=== PATIENT | male | born 1975 | race Two or more races ===

== ENCOUNTER 2018-02-11 04:50 | Inpatient (IN) | payer OTHER ==
[~2018-02-11] VITALS: Ht 177.8 cm; Wt 90.3 kg
--- NOTE | 2018-02-11 05:10 | NUR ---
SE RECIBE PTE ALERTA Y ORIENTADO POR JOSE ALBERTO. PTE REFIERE PRESENTAR JAME DOLOR EN COSTADO DERECHO DESDE LA MADRUGADA.
--- NOTE | 2018-02-11 05:44 | NUR ---
PTE EVALUADO POR DR DIAZ QUIEN [place]. MR R SMALL ORIENTA SOBRE EL MISMO, LO CUAL REFIERE ENTENDER, REALIZA PRUEBAS DE LABORATORIO Y ADMINISTRA MEDICAMENTOS SHUKRI ORDEN MEDICA Y SIGUIENDO MEDIDAS ASEPTICAS. PTE PENDIENTE A REALIZAR CT-PO. SE MANTIENE BAJO OBSERVACION.
--- NOTE | 2018-02-11 07:19 | NUR ---
SE RECIBE PTE MASCULINO DE 42 YRS ALERTA CONCIENTE Y TRANQUILO EN COMPANIA DE FAMILIARE. PTE EN ESPERA DE ESTUDIO DE CT SCAN . SE LE STACEY S/V LA CUAL SE DOCUMENTA. SE OBSERVA POR CAMBIOS.
[2018-02-13] MEDS ORDERED: PROTONIX40 MG PO (11:38)
[2018-02-13] MEDS ORDERED: AMOX1TAB5 PO (11:38)
[2018-02-13] MEDS ORDERED: FLAGYL500MG PO (11:38)
== END 2018-02-13 12:39 | disposition home or self-care (01) | DRG 343 ==
LOC: ER 04:50 → O/R 14:15 → SURH 14:15
PROVIDERS: ADMIT Surgery
PROC: BW21ZZZ Computerized Tomography (CT Scan) of Abdomen and Pelvis (ICD-10-PCS; 2018-02-11)
PROC: 0DTJ0ZZ Resection of Appendix, Open Approach (ICD-10-PCS; principal; 2018-02-11 16:00)
DX: K35.890 Other acute appendicitis without perforation or gangrene (principal); I10 Essential (primary) hypertension; K59.09 Other constipation; K57.30 Diverticulosis of large intestine without perforation or abscess without bleeding

== ENCOUNTER 2019-06-14 11:30 | Outpatient (CLI) | payer OTHER ==
[~2019-06-14 11:30] MED LIST: AMOX1TAB5 PO; FLAGYL500MG PO; PROTONIX40 MG PO
== END 2019-06-14 13:20 | disposition home or self-care (01) ==
LOC: NUCLEAR 11:30
DX: I87.2 Venous insufficiency (chronic) (peripheral) (principal); R60.0 Localized edema; D69.2 Other nonthrombocytopenic purpura; I73.89 Other specified peripheral vascular diseases

== ENCOUNTER 2019-06-16 10:46 | Outpatient (CLI) | payer OTHER | END 2019-06-16 11:12 | disposition home or self-care (01) | LOC: NUCLEAR 10:46 | DX: I73.89 Other specified peripheral vascular diseases (principal); R60.0 Localized edema; D69.2 Other nonthrombocytopenic purpura; I87.2 Venous insufficiency (chronic) (peripheral) ==

== ENCOUNTER 2020-02-27 14:57 | Outpatient (CLI) | payer OTHER | END 2020-02-27 15:08 | disposition home or self-care (01) | LOC: TOM 14:57 | PROVIDERS: ATTEND Otolaryngology Plastic Surgery within the Head & Neck | DX: H70.892 Other mastoiditis and related conditions, left ear (principal); H70.899 Other mastoiditis and related conditions, unspecified ear; H93.8X9 Other specified disorders of ear, unspecified ear ==

== ENCOUNTER → 2020-03-06 | Outpatient (CLI) | payer OTHER | END | disposition home or self-care (01) | LOC: RAD 14:44 | PROVIDERS: ATTEND General Practice | DX: J01.80 Other acute sinusitis (principal); H92.03 Otalgia, bilateral ==

== ENCOUNTER 2022-03-30 07:26 | Outpatient (CLI) | payer OTHER | END 2022-03-30 07:40 | disposition home or self-care (01) | LOC: RAD 07:26 | DX: M54.2 Cervicalgia (principal) ==

== ENCOUNTER 2022-11-05 13:40 | Outpatient (CLI) | payer OTHER | END 2022-11-05 14:02 | disposition home or self-care (01) | LOC: SONOGRAMA 13:40 | DX: N50.812 Left testicular pain (principal); N44.2 Benign cyst of testis ==

== ENCOUNTER 2023-01-12 08:22 | Outpatient (CLI) | payer OTHER | END 2023-01-12 08:28 | disposition home or self-care (01) | LOC: SONOGRAMA 08:22 | PROVIDERS: ATTEND Student in an Organized Health Care Education/Training Program | DX: R10.13 Epigastric pain (principal) ==

== ENCOUNTER 2023-03-09 09:19 | Outpatient (CLI) | payer OTHER | END 2023-03-09 09:40 | disposition home or self-care (01) | LOC: RAD 09:19 | PROVIDERS: ATTEND General Practice | DX: M15.9 Polyosteoarthritis, unspecified (principal) ==

== ENCOUNTER 2023-05-17 13:32 | Emergency (ER) | payer OTHER ==
[~2023-05-17] VITALS: Ht 177.8 cm; Wt 90.3 kg
[2023-05-17] MEDS ORDERED: COZAAR100 MG PO (14:12)
[2023-05-17] MEDS ORDERED: HYDRODIURIL12.5 MG PO (14:12)
[2023-05-17] MEDS ORDERED: HYZAAR 100-12.1 EACH PO (14:13)
[2023-05-17] MEDS ORDERED: KETOROLAC TROMETHAMINE 30 MG VIAL IM STA (15:23)
[2023-05-17] MEDS ORDERED: ORPHENADRINE CITRATE 30 MG/ML AMPUL IM STA (15:24)
== END 2023-05-17 15:36 | disposition home or self-care (01) ==
LOC: ER 13:32
DX: M54.31 Sciatica, right side (principal)

== ENCOUNTER 2023-05-18 03:55 | Emergency (ER) | payer OTHER ==
[~2023-05-18] VITALS: Ht 177.8 cm; Wt 58.5 kg
[~2023-05-18 03:55] MED LIST changes: +COZAAR100 MG PO; +HYDRODIURIL12.5 MG PO; +HYZAAR 100-12.1 EACH PO
[2023-05-18] MEDS ORDERED: KETOROLAC TROMETHAMINE 60 MG VIAL IM STA (05:11)
[2023-05-18] MEDS ORDERED: DEXAMETHASONE SODIUM PHOSPHATE 4 MG/ML VIAL IM STA (05:12)
[2023-05-18] MEDS ORDERED: ORPHENADRINE CITRATE 30 MG/ML AMPUL IM STA (05:12)
[2023-05-18] MEDS ORDERED: OxyCODONE HCL/APAP UD (PERCOCET) PO STA (05:12)
== END 2023-05-18 05:40 | disposition home or self-care (01) ==
LOC: ER 03:55
DX: M54.16 Radiculopathy, lumbar region (principal); I10 Essential (primary) hypertension

== ENCOUNTER 2023-05-19 08:36 | Outpatient (CLI) | payer OTHER | END 2023-05-19 08:41 | disposition home or self-care (01) | LOC: RAD 08:36 | PROVIDERS: ATTEND General Practice | DX: M15.9 Polyosteoarthritis, unspecified (principal) ==

== ENCOUNTER 2023-08-25 13:25 | Outpatient (CLI) | payer OTHER | END 2023-08-25 13:32 | disposition home or self-care (01) | LOC: SONOGRAMA 13:25 | PROVIDERS: ATTEND General Practice | DX: R13.10 Dysphagia, unspecified (principal) ==

== ENCOUNTER 2023-08-29 22:56 | Emergency (ER) | payer OTHER ==
[~2023-08-29] VITALS: Ht 177.8 cm; Wt 90.3 kg
[2023-08-29] MEDS ORDERED: LOSARTAN-HCTZ1 EAC2 PO (23:26)
[2023-08-29] MEDS ORDERED: FENOFIBRATE145 MG PO (23:27)
[2023-08-30] MEDS ORDERED: ORPHENADRINE CITRATE 30 MG/ML AMPUL IM STA (00:35)
[2023-08-30] MEDS ORDERED: KETOROLAC TROMETHAMINE 60 MG VIAL IM STA (00:35)
[2023-08-30] MEDS ORDERED: NORFLEX100MG PO (03:29)
[2023-08-30] MEDS ORDERED: KETO10TA2 PO (03:29)
== END 2023-08-30 03:36 ==
LOC: ER
DX: R07.89 Other chest pain (principal); F41.9 Anxiety disorder, unspecified; I10 Essential (primary) hypertension

== ENCOUNTER 2024-01-05 08:07 | Outpatient (CLI) | payer OTHER ==
[~2024-01-05 08:07] MED LIST changes: +FENOFIBRATE145 MG PO; +KETO10TA2 PO; +LOSARTAN-HCTZ1 EAC2 PO; +NORFLEX100MG PO
== END 2024-01-05 08:13 | disposition home or self-care (01) ==
LOC: SONOGRAMA 08:07
PROVIDERS: ATTEND Urology
DX: N50.3 Cyst of epididymis (principal)

== ENCOUNTER 2024-01-25 15:12 | Outpatient (CLI) | payer OTHER | END 2024-01-25 15:17 | disposition home or self-care (01) | LOC: RAD 15:12 | PROVIDERS: ATTEND Urology | DX: N43.40 Spermatocele of epididymis, unspecified (principal) ==

== ENCOUNTER 2024-05-01 12:55 | Outpatient (CLI) | payer OTHER | END 2024-05-01 13:04 | disposition home or self-care (01) | LOC: MRI 12:55 | PROVIDERS: ATTEND Orthopaedic Surgery Orthopaedic Surgery of the Spine | DX: M54.16 Radiculopathy, lumbar region (principal) | CPT/HCPCS: 72148 ==

== ENCOUNTER 2024-08-17 08:18 | Outpatient (CLI) | payer OTHER | END 2024-08-17 08:25 | disposition home or self-care (01) | LOC: SONOGRAMA 08:18 | PROVIDERS: ATTEND Urology | DX: N50.3 Cyst of epididymis (principal); N50.812 Left testicular pain ==

== ENCOUNTER 2024-09-26 07:47 | Outpatient (CLI) | payer OTHER | END 2024-09-26 07:53 | disposition home or self-care (01) | LOC: RAD 07:47 | DX: M54.2 Cervicalgia (principal); M54.12 Radiculopathy, cervical region ==

== ENCOUNTER 2024-11-17 07:23 | Outpatient (CLI) | payer OTHER | END 2024-11-17 07:27 | disposition home or self-care (01) | LOC: TOM 07:23 | DX: R10.11 Right upper quadrant pain (principal); R10.814 Left lower quadrant abdominal tenderness ==